=== PATIENT | female | born 1990 | race Caucasian/White ===

== ENCOUNTER → 2017-01-21 | Outpatient (CLI) | payer MEDICAID ==
[~2017-01-21] MED LIST: BACTRIM DS TAB1 EACH PO; BUPRENORPHINE H1 TAB SL; IBUPROFEN 600M600 MG PO; KEFLEX 500MG.500 MG PO; LEVAQUIN 750 M750 MG PO; LORTAB 5/500 501 TAB PO; NAPROXEN SODIU500 MG PO; NOMEDS; PHENAZOPYRIDIN200 MG PO; PHENERGAN 25MG.25 M1 PO; SUBOXONE 8 MG-21 FIL SL
--- NOTE | 2017-01-22 09:26 | RADIOLOGY REPORT PS360 ---
ARTERIAL/[id number] DECREASED PULSES, history of smoking, discoloration of the ORDERING PHYSICIAN: MOHINDER SOMMERS APRN PATIENT AGE: 27 years TECHNIQUE: Segmental pressures obtained of both right and left leg. These are compared to brachial blood pressure to yield index at each level sampled including summary ANTWON. The data sheets from the procedure are available in PACS FINDINGS Rest study only performed today No prior studies available for comparison. Blood pressures reported are in millimeters mercury. RIGHT LEG ANTWON = 1.2. Brachial BP: 121 Thigh BP: 139 Calf BP: 127 Ankle PT: 139 Ankle DP : 140 Digit =85 LEFT LEG ANTWON = 1.1 Brachial BPD: 109 Thigh BP: 143 Calf BP: 129 Ankle PT:134 Ankle DP: 133 Digit = 85 Pulses and waveforms: Normal IMPRESSION: 1. The ABIs as reported above are within normal limits. Waveforms and pulses are also unremarkable. 2. There is variation of the blood pressure between the right and left brachial pressure 121 on the right and 109 on the left. Recommend repeating upper extremity blood pressures. If this difference persistent one must consider a stenosis of the left subclavian, axillary, or proximal brachial artery.
== END ==
LOC: RT 01-19 13:00
DX: M31.7 Microscopic polyangiitis (principal)

== ENCOUNTER 2017-02-08 17:28 | Emergency (ER) | payer MEDICAID ==
[~2017-02-08] VITALS: Ht 180.3 cm; Wt 61.2 kg
[2017-02-08] MEDS ORDERED: SUBOXONE 8 MG-21 FIL SL (17:45)
[2017-02-08] MEDS ORDERED: KEFLEX 500MG.500 MG PO (17:45)
--- NOTE | 2017-02-08 19:02 | Urgent Treatment Center Report ---
History of Present Issue Date/Time Seen by Provider 02/08/17 7745 Visit Reason Pt arrived:Walked Presenting Problem:PT STATES ITCHING, TENDERNESS, AND PURPLE SPLOTCHES TO LEFT FOOT THAT HAS BEEN GOING ON FOR THREE YEARS. STATES SEEING WOUND THERAPIST TODAY WHO SUGGESTED SHE BE SEEN FOR FOOT. Location if Accident: Onset of symptoms date/time:/ or onset unknown for:MEDICAL HX UNKNOWN Have you (or family members/close friends) recently traveled outside the [place]? N If Yes, where/when: Have you had exposure to infectious disease within the past month? TB? Other? Specify: Patient state that she has been having wound care treatement on her left foot and states that the therapist scared her today when he was talking about different vascular diseases and conditions that could be going on with her foot and she got worried and thought she may need to come here to be refered somewhere or see what she needed to do States that she has been having purplish discoloration to left foot for over 3 years and recently developed small wound on inside aspect of left ankle in which she has been getting wound care for for the last few weeks states that she was told by her family doctor to continue wearing boot. States that she got worried when she heard vascular disease and came in to see someone ALLERGIES Coded Allergies: Iodinated Contrast Media - Oral and (IODINATED CONTRAST MEDIA - IV DYE) ( Intermediate, NA-NAUSEA/VOMITING 10/21/15) levofloxacin (From LEVAQUIN) (Mild, 01/23/17) ondansetron (From ZOFRAN ( HYDROCHLORIDE)) (10/21/15) Home Medications Active Scripts Promethazine Hydrochloride (Phenergan 25MG Tab) 12.5 MG PO Q4-6H PRN #12 Prov: 07/11/12 Reported Medications No Home Medications (NO HOME MEDICATIONS) BUPRENORPHINE HCL/NALOXONE HCL (Buprenorphin-Naloxon 8-2 MG Sl) 1 TAB SL BID #34 IBUPROFEN MICRONIZED (IBUPROFEN 600MG) 600 MG PO Q6HP PRN ANKLE PAIN BUPRENORPHINE HCL/NALOXONE HCL (Suboxone 8 MG-2 MG Sl Film) 1 SL BID #28 CEPHALEXIN (Keflex 500MG Capsule) 500 MG PO QID History Medical History General CAD? No Angina: No [place]: No Hypertension? No Hyperlipidemia? No CHF? No DVT? No PE? No COPD? No Asthma? No Anemia? No GERD? No Gastric ulcers? No GI Bleed? No Hernia? No Thyroid Problems? No Hypothyroidism? No CVA? No Seizures? No Diabetes? No Renal Insuffiency? No UTI? No Stones? No BPH? No GB Disease: No Nephritic Syndrome? No Asplenia? No Hepatitis? No Sickle Cell Disease? No Arthritis? No Migraines? No Cataracts? No Glaucoma? No MRSA? No HIV? No TB? No Anxiety? No Depression? No Cancer? No More? 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-LMP Unknown Social History Smoking Hx Smoker: Current Every Day Smoker Tobacco: Yes Type Cigarettes Packs/day < 1 Pack Alcohol Alcohol: No Review of Systems All Other Systems Reviewed and Negative Comment Purplish discoloration to left foot for over 3 years with new wound on inside of left ankle that she is receiving wound care for Physical Exam Vital Signs Vital Signs Date Time Temp Pulse Resp B/P Pulse O2 O2 Flow FiO2 Ox Delivery Rate 02/08 1742 97.9 105 20 120/78 98 General Appearance normal appearance, WD/WN, no apparent distress Respiratory Status Yes: trachea midline, chest symmetrical, non tender chest. No: respiratory distress. Cardiovascular normal exam, regular rate/rhythm, no peripheral edema, no gallop, no JVD Extremities wasting of foot, purplish in color with dryness noted, wound on inner aspect of ankle area with bandage intact from wound care received prior to arrival. No obvious temperature differences noted, pedal pulse palpated Neurologic alert, regulatory assistant II-XII nml as tested, normal exam, no motor/sensory deficits, oriented x 3 Medical Decision Making LABS/Meds/Orders Pt receiving controlled substance in ED? No Progress [facility] Progress Notes Date 02/08/17 Time 1857 Comment Patient advised to call primary care physician in the am and make appointment and inform them of what wound care suggested so they can order appropriate testing and follow up as needed Departure Departure Time of Disposition 1858 Disposition DC Home or Self Care(routine) Clinical Impression Primary Impression: At risk for foot problem Condition STABLE Referrals FLAVIO SIDHU (Family): Tomorrow-Call Office call to schedule appointment and discuss concerns and possibly order needed testing Additional Instructions Follow up with family doctor immediately if needed Return to [facility] if needed Continue taking antibiotics and wound care as ordered Discharge Counseling Counseled pt/family regarding diagnosis, home care, follow up needs at [phone]
--- NOTE | 2017-02-08 19:02 | Urgent Treatment Center Report ---
History of Present Issue Date/Time Seen by Provider 02/08/17 0275 Visit Reason Pt arrived:Walked Presenting Problem:PT STATES ITCHING, TENDERNESS, AND PURPLE SPLOTCHES TO LEFT FOOT THAT HAS BEEN GOING ON FOR THREE YEARS. STATES SEEING WOUND THERAPIST TODAY WHO SUGGESTED SHE BE SEEN FOR FOOT. Location if Accident: Onset of symptoms date/time:/ or onset unknown for:MEDICAL HX UNKNOWN Have you (or family members/close friends) recently traveled outside the [place]? N If Yes, where/when: Have you had exposure to infectious disease within the past month? TB? Other? Specify: Patient state that she has been having wound care treatement on her left foot and states that the therapist scared her today when he was talking about different vascular diseases and conditions that could be going on with her foot and she got worried and thought she may need to come here to be refered somewhere or see what she needed to do States that she has been having purplish discoloration to left foot for over 3 years and recently developed small wound on inside aspect of left ankle in which she has been getting wound care for for the last few weeks states that she was told by her family doctor to continue wearing boot. States that she got worried when she heard vascular disease and came in to see someone ALLERGIES Coded Allergies: Iodinated Contrast Media - Oral and (IODINATED CONTRAST MEDIA - IV DYE) ( Intermediate, NA-NAUSEA/VOMITING 10/21/15) levofloxacin (From LEVAQUIN) (Mild, 01/23/17) ondansetron (From ZOFRAN ( HYDROCHLORIDE)) (10/21/15) Home Medications Active Scripts Promethazine Hydrochloride (Phenergan 25MG Tab) 12.5 MG PO Q4-6H PRN #12 Prov: 07/11/12 Reported Medications No Home Medications (NO HOME MEDICATIONS) BUPRENORPHINE HCL/NALOXONE HCL (Buprenorphin-Naloxon 8-2 MG Sl) 1 TAB SL BID #34 IBUPROFEN MICRONIZED (IBUPROFEN 600MG) 600 MG PO Q6HP PRN ANKLE PAIN BUPRENORPHINE HCL/NALOXONE HCL (Suboxone 8 MG-2 MG Sl Film) 1 SL BID #28 CEPHALEXIN (Keflex 500MG Capsule) 500 MG PO QID History Medical History General CAD? No Angina: No [place]: No Hypertension? No Hyperlipidemia? No CHF? No DVT? No PE? No COPD? No Asthma? No Anemia? No GERD? No Gastric ulcers? No GI Bleed? No Hernia? No Thyroid Problems? No Hypothyroidism? No CVA? No Seizures? No Diabetes? No Renal Insuffiency? No UTI? No Stones? No BPH? No GB Disease: No Nephritic Syndrome? No Asplenia? No Hepatitis? No Sickle Cell Disease? No Arthritis? No Migraines? No Cataracts? No Glaucoma? No MRSA? No HIV? No TB? No Anxiety? No Depression? No Cancer? No More? 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 Social History Smoking Hx Smoker: Current Every Day Smoker Tobacco: Yes Type Cigarettes Packs/day < 1 Pack Alcohol Alcohol: No Review of Systems All Other Systems Reviewed and Negative Comment Purplish discoloration to left foot for over 3 years with new wound on inside of left ankle that she is receiving wound care for Physical Exam Vital Signs Vital Signs Date Time Temp Pulse Resp B/P Pulse O2 O2 Flow FiO2 Ox Delivery Rate 02/08 1742 97.9 105 20 120/78 98 General Appearance normal appearance, WD/WN, no apparent distress Respiratory Status Yes: trachea midline, chest symmetrical, non tender chest. No: respiratory distress. Cardiovascular normal exam, regular rate/rhythm, no peripheral edema, no gallop, no JVD Extremities wasting of foot, purplish in color with dryness noted, wound on inner aspect of ankle area with bandage intact from wound care received prior to arrival. No obvious temperature differences noted, pedal pulse palpated Neurologic alert, head of loss prevention II-XII nml as tested, normal exam, no motor/sensory deficits, oriented x 3 Medical Decision Making LABS/Meds/Orders Pt receiving controlled substance in ED? No Progress [facility] Progress Notes Date 02/08/17 Time 1857 Comment Patient advised to call primary care physician in the am and make appointment and inform them of what wound care suggested so they can order appropriate testing and follow up as needed Departure Departure Time of Disposition 1858 Disposition DC Home or Self Care(routine) Clinical Impression Primary Impression: At risk for foot problem Condition STABLE Referrals FLAVIO SIDHU (Family): Tomorrow-Call Office call to schedule appointment and discuss concerns and possibly order needed testing Additional Instructions Follow up with family doctor immediately if needed Return to [facility] if needed Continue taking antibiotics and wound care as ordered Discharge Counseling Counseled pt/family regarding diagnosis, home care, follow up needs at [phone]
[2017-02-08 19:10] VITALS: BP 120/78
== END 2017-02-08 19:12 | disposition home or self-care (01) ==
LOC: UTC 17:28
DX: L97.909 Non-pressure chronic ulcer of unspecified part of unspecified lower leg with unspecified severity (principal); Z72.0 Tobacco use

== ENCOUNTER → 2017-02-14 | Outpatient (CLI) | payer MEDICAID ==
[2017-02-14 17:47] LABS: HEMOGLOBIN 13.9 g/dL (12.2-16.2); LYMPH # 2.5 K/mm3 (0.7-4.5); LYMPH % 25.5 % (10-50.0)
[2017-02-14 18:47] LABS: BUN 12 mg/dL (7-18)
[2017-02-14 19:48] LABS: GFR (ESTIMATED) 101 ML/MIN (59-)
[2017-02-16 08:46] LABS: Vitamin D, 25-Hydroxy 50.3 ng/mL (30.0-100.0)
[2017-02-16 09:38] LABS: Folate (Folic Acid) 13.8 ng/mL (>3.0); Vitamin B12 810 pg/mL (211-946)
[2017-02-16 14:41] LABS: Anti-DNA (DS) Ab Qn <1 IU/mL (0-9)
[2017-02-17 03:41] LABS: Lupus Reflex Interpretation Comment: (.); PTT-LA 30.9 sec (0.0-43.6); dRVVT 43.9 sec (0.0-44.0)
[2017-02-17 10:39] LABS: Antinuclear Antibodies, IFA Negative (.)
== END ==
LOC: LAB 16:09
PROVIDERS: Physician Assistant
DX: I77.6 Arteritis, unspecified (principal); R20.2 Paresthesia of skin

== ENCOUNTER → 2017-07-19 | Outpatient (CLI) | payer MEDICAID ==
[~2017-07-19] MED LIST changes: +MEDROL 4MG. DOSE4 MG PO; +MOTRIN 400MG.400 MG PO; +TYLENOL ES500 MG PO
[2017-07-19 18:04] LABS: AMPHETAMINES/METAMPHETAMINES NEGATIVE ng/mL (<1000)
== END ==
LOC: LAB 14:12
PROVIDERS: Podiatrist
DX: L97.509 Non-pressure chronic ulcer of other part of unspecified foot with unspecified severity (principal)

== ENCOUNTER → 2017-08-23 | Outpatient (CLI) | payer MEDICAID ==
--- NOTE | 2017-08-23 15:22 | RADIOLOGY REPORT PS360 ---
ARTERIAL/[id number] NON HEALING ULCER smoker ORDERING PHYSICIAN: LULY MATA DPM PATIENT AGE: 27 years TECHNIQUE: Segmental pressures obtained of both right and left leg. These are compared to brachial blood pressure to yield index at each level sampled including summary ANTWON. The data sheets from the procedure are available in PACS FINDINGS Rest study only performed today No prior studies available for comparison. Blood pressures reported are in millimeters mercury. RIGHT LEG ANTWON = 1.0. Right TBI equals 0.8 Brachial BP: 116 Thigh BP: 131 Calf BP: 125 Ankle PT: 125 Ankle DP : 1:30 Digit =89 LEFT LEG ANTWON = 1.2 LeftTBI = 0.8 Brachial BPD: 118 Thigh BP: 145 Calf BP: 133 Ankle PT:138 Ankle DP: 133 Digit = 90 Pulses and waveforms: Waveforms are normal. The pulses are diminished on both sides IMPRESSION: 1. Normal ABIs. The TBI's are within normal limits as well. 2. Slightly diminished pulses bilaterally
== END ==
LOC: RT 08-17 15:15
DX: L97.509 Non-pressure chronic ulcer of other part of unspecified foot with unspecified severity (principal)